=== PATIENT | male | born 1950 | race Caucasian/White ===

== ENCOUNTER 2018-02-03 09:34 | Emergency (ER) | payer OTHER ==
[2018-02-03 09:40] VITALS: TEMP 97.6; BMI 29.4
[2018-02-03 10:09] LABS: PH,URINE 6.5 (4.5-8); URINE APPEARANCE Clear; URINE BILIRUBIN Negative (NEGATIVE); URINE COLOR Yellow; URINE GLUCOSE (UA) Negative (NEGATIVE); URINE KETONE Negative (NEGATIVE); URINE LEUK ESTERASE Negative (NEGATIVE); URINE NITRITE Negative (NEGATIVE); URINE PROTEIN Negative (NEGATIVE); URINE UROBILINOGEN 0.2 (0.2-1.0)
[2018-02-03] MEDS ORDERED: LIDOCAINE HCL 2% JELLY 10 ML CARTRIDGE ONE (10:11)
--- NOTE | 2018-02-03 10:11 | PDOC ---
History of Present Illness - General Chief Complaint: Urinary Problem Stated Complaint: DYSURIA, URINARY RETENTION, FREQUENCY, DRIBBLING Time Seen by Provider: 02/03/18 09:41 History Source: Patient - History of Present Illness Initial Comments: 02/03/18 10:06 67m with pmh of HTN and BPH presents to the ED with urinary retention since last night. He has been on Flomax for the past year, ever since he had symptoms of retention last year. Since last night, he has had urinary urgency with very little urine coming out each time throughout the night. Has had a gomez placed last year. Is seeing his Urologist in [place], flying back to [place] in two days. Denies fever, chills, pain, fever, or hematuria. Past History - Past Medical History Allergies/Adverse Reactions: Allergies Allergy/AdvReac Type Severity Reaction Status Date / Time No Known Allergies Allergy Verified 02/03/18 09:35 Home Medications: Ambulatory Orders Amlodipine Besylate 10 mg PO DAILY 02/03/18 Metoprolol Succinate [Toprol Xl] 100 mg PO BID 02/03/18 Tamsulosin HCl [Flomax] 0.4 mg PO DAILY 02/03/18 COPD: No Disorders: Yes (BPH) HTN: Yes - Suicide/Smoking/Psychosocial Hx Smoking History: Never smoked Have you smoked in the past 12 months: No Information on smoking cessation initiated: No Hx Alcohol Use: No Drug/Substance Use Hx: No Review of Systems - Review of Systems Able to Perform ROS?: Yes Is the patient limited Israeli proficient: No Constitutional: No: Symptoms Reported HEENTM: No: Symptoms Reported Respiratory: No: Symptoms reported Cardiac (ROS): No: Symptoms Reported ABD/GI: No: Symptoms Reported : Yes: See HPI Musculoskeletal: No: Symptoms Reported Integumentary: No: Symptoms Reported Neurological: No: Symptoms reported *Physical Exam - Vital Signs Last Vital Signs Temp Pulse Resp BP Pulse Ox 97.6 F 87 18 171/104 H 99 02/03/18 09:34 02/03/18 09:34 02/03/18 09:34 02/03/18 09:34 02/03/18 09:34 - Physical Exam General Appearance: Yes: Nourished, Appropriately Dressed. No: Apparent Distress HEENT: positive: EOMI, JAMIL, Normal ENT Inspection Respiratory/Chest: positive: Lungs Clear, Normal Breath Sounds. negative: Chest Tender, Respiratory Distress Cardiovascular: positive: Regular Rhythm, Regular Rate, S1, S2 Gastrointestinal/Abdominal: positive: Normal Bowel Sounds, Flat, Soft. negative : Tender Musculoskeletal: positive: Normal Inspection. negative: CVA Tenderness Extremity: positive: Normal Capillary Refill, Normal Inspection, Normal Range of Motion Integumentary: positive: Normal Color, Dry, Warm Neurologic: positive: Fully Oriented, Alert, Normal Mood/Affect, Normal Response Medical Decision Making - Medical Decision Making 02/03/18 10:15 67M with pmh of HTN and BPH presents with urinary retention since last night. This patient has acute on chronic urinary retention secondary to BPH. Will obtain UA, Uculture, bladder scan and place gomez leg bag. 02/03/18 11:35 No UTI. Will dc patient with gomez leg bag. Follow up in [place]. *DC/Admit/Observation/Transfer Diagnosis at time of Disposition: Urinary retention due to benign prostatic hyperplasia - Discharge Dispostion Disposition: HOME Condition at time of disposition: Stable Decision to Admit order: No - Referrals - Patient Instructions Printed Discharge Instructions: How to Care for Your Gomez Catheter -- Male Additional Instructions: Follow up with your Urologist in [place]. Come back to the ER for any new, worsening or concerning symptoms like foul smelling urine, fever, chills, or bleeding. - Post Discharge Activity
--- NOTE | 2018-02-03 10:56 | PDOC ---
Attending Attestation - Resident Resident Name: ToritoGigi - ED Attending Attestation I have performed the following: I have examined & evaluated the patient, The case was reviewed & discussed with the resident, I agree w/resident's findings & plan, Exceptions are as noted - HPI HPI: 02/03/18 10:55 61yo hx HTN, BPH presents to the ED with urinary retention since last night. Has hx of similar sxs 1 year ago, had a gomez placed and passed a trial of void after starting flomax. Has been taking flomax daily. Reports some difficulty urinating over the last 2 weeks, but was able to fully void up until last night. No hematuria, fevers, chills, back pain. He is originally from [place] and is visiting the area for a few days. He will return tomorrow. Denies CP, SOB , n/v/d, weakness, numbness. - Physicial Exam PE: 02/03/18 11:36 GENERAL: Awake, alert, and fully oriented, in no acute distress EYES: PERRLA, EOMI, sclera anicteric, conjunctiva clear ENT: Nares patent, oropharynx clear without exudates. Moist mucosa NECK: Normal ROM, supple LUNGS: Breath sounds equal, clear to auscultation bilaterally. No wheezes, and no crackles HEART: Regular rate and rhythm, normal S1 and S2, no murmurs, rubs or gallops ABDOMEN: Soft, nontender, normoactive bowel sounds. No guarding, no rebound. No masses. No CVAT. : Gomez in place EXTREMITIES: Normal range of motion, no edema. No cords, erythema, or tenderness NEUROLOGICAL: Normal speech, cranial nerves intact, 5/5 strength in all 4 extremities, normal sensation to light touch in all 4 extremities, normal gait SKIN: Warm, Dry, normal turgor, no rashes or lesions noted. - Medical Decision Making 02/03/18 11:38 67yo M hx BPH complicated by urinary retention presents to the ED with urinary retention. Gomez placed with 1L of output over 2 hours. UA w low likelihood of infection. Pt feels much better, requests DC home, will f/u with his urologist at [facility] on Monday. Rpt BP 117/70. I discussed the physical exam findings, ancillary test results and final diagnoses with the patient. I answered all of the patient's questions. The patient was satisfied with the care received and felt comfortable with the discharge plan and treatment plan. The patient will call their primary care physician within 24 hours to arrange follow-up and will return to the Emergency Department with any new, persistent or worsening symptoms.
[2018-02-03 11:42] VITALS: BP 117/70; PULSE 69
== END 2018-02-03 12:00 | disposition home or self-care (01) ==
LOC: FER 09:34
PROC: 0T9B70Z Drainage of Bladder with Drainage Device, Via Natural or Artificial Opening (ICD-10-PCS; principal; 2018-02-03)
DX: N40.1 Benign prostatic hyperplasia with lower urinary tract symptoms (principal); R33.8 Other retention of urine; I10 Essential (primary) hypertension
CPT/HCPCS: 81003; 81015; 87086; 99284-25